=== PATIENT | female | born 1970 | race Caucasian/White ===

== ENCOUNTER → 2020-11-30 | Outpatient (CLI) | payer OTHER | LOC: EMI 08:53 | DX: M25.511 Pain in right shoulder (principal); M75.101 Unspecified rotator cuff tear or rupture of right shoulder, not specified as traumatic; S46.011A Strain of muscle(s) and tendon(s) of the rotator cuff of right shoulder, initial encounter; S43.431A Superior glenoid labrum lesion of right shoulder, initial encounter; X58.XXXA Exposure to other specified factors, initial encounter | CPT/HCPCS: 73221 ==

== ENCOUNTER → 2021-03-29 | Outpatient (CLI) | payer OTHER | LOC: HEART 5 09:28 | DX: R00.2 Palpitations (principal); I08.1 Rheumatic disorders of both mitral and tricuspid valves | CPT/HCPCS: 93306 ==

== ENCOUNTER → 2021-06-29 | Outpatient (CLI) | payer OTHER | LOC: EXRD 11:13 | DX: E04.9 Nontoxic goiter, unspecified (principal) | CPT/HCPCS: 76536 ==

== ENCOUNTER → 2021-09-15 | Outpatient (CLI) | payer OTHER ==
[~2021-09-15] MED LIST: CARTIA XT120 MG PO; COLACE 100MG C100 MG PO; HYDROCODON-ACE1 EAC6 PO; LANTUS SOL100 UNIT/1 SQ; LIPITOR TAB 1010 MG PO; LOSARTAN PO; METFORMIN HCL1000 MG PO; METOPROLOL SUC100 MG PO; OZEMPIC
[2021-09-15 10:43] LABS: BUN/CREATININE RATIO 24 (0-10); RED BLOOD COUNT 4.96 M/UL (4.00-5.10); WHITE BLOOD COUNT 8.3 K/UL (4.5-11.0)
== END ==
LOC: OPSV2 09-14 08:00
PROVIDERS: Obstetrics & Gynecology
DX: Z01.818 Encounter for other preprocedural examination (principal); N84.0 Polyp of corpus uteri
CPT/HCPCS: 36415; 80053; 81001; 85025; 93005

== ENCOUNTER → 2021-09-21 | Day surgery (SDC) | payer OTHER | END | disposition home or self-care (01) | LOC: OR 05:08 | DX: N84.1 Polyp of cervix uteri (principal); N84.0 Polyp of corpus uteri; I10 Essential (primary) hypertension; E78.5 Hyperlipidemia, unspecified; E78.00 Pure hypercholesterolemia, unspecified; E11.65 Type 2 diabetes mellitus with hyperglycemia; E66.9 Obesity, unspecified; Z68.35 Body mass index [BMI] 35.0-35.9, adult; Z79.4 Long term (current) use of insulin; Z79.899 Other long term (current) drug therapy; Z98.51 Tubal ligation status; Z80.3 Family history of malignant neoplasm of breast | CPT/HCPCS: 82962; J1100; J1885; J2001; J2250; J2405; J2704; J2795; J3010; J7030; J7120 ==